=== PATIENT | male | born 1950 | race Caucasian/White ===

== ENCOUNTER → 2018-02-28 | Outpatient (CLI) | payer BC | END | disposition home or self-care (01) | LOC: WOUND 12:44 | PROVIDERS: ATTEND Family Medicine | DX: E10.622 Type 1 diabetes mellitus with other skin ulcer (principal); L97.212 Non-pressure chronic ulcer of right calf with fat layer exposed; E10.21 Type 1 diabetes mellitus with diabetic nephropathy; I10 Essential (primary) hypertension; E03.9 Hypothyroidism, unspecified; E66.01 Morbid (severe) obesity due to excess calories; Z68.37 Body mass index [BMI] 37.0-37.9, adult | CPT/HCPCS: 11043; 29581; 99214 ==

== ENCOUNTER → 2018-03-07 | Outpatient (CLI) | payer BC | END | disposition home or self-care (01) | LOC: WOUND 08:59 | PROVIDERS: ATTEND Internal Medicine Cardiovascular Disease | DX: E11.622 Type 2 diabetes mellitus with other skin ulcer (principal); L97.212 Non-pressure chronic ulcer of right calf with fat layer exposed; E11.21 Type 2 diabetes mellitus with diabetic nephropathy; E11.40 Type 2 diabetes mellitus with diabetic neuropathy, unspecified; I10 Essential (primary) hypertension; E03.9 Hypothyroidism, unspecified; E78.5 Hyperlipidemia, unspecified; E66.01 Morbid (severe) obesity due to excess calories; Z68.37 Body mass index [BMI] 37.0-37.9, adult | CPT/HCPCS: 29581 ==

== ENCOUNTER → 2018-03-14 | Outpatient (CLI) | payer BC | END | disposition home or self-care (01) | LOC: WOUND 09:48 | PROVIDERS: ATTEND Family Medicine | DX: E11.622 Type 2 diabetes mellitus with other skin ulcer (principal); L97.212 Non-pressure chronic ulcer of right calf with fat layer exposed; E11.21 Type 2 diabetes mellitus with diabetic nephropathy; I10 Essential (primary) hypertension; E03.9 Hypothyroidism, unspecified; E66.01 Morbid (severe) obesity due to excess calories; Z68.37 Body mass index [BMI] 37.0-37.9, adult | CPT/HCPCS: 97597 ==

== ENCOUNTER → 2018-03-21 | Outpatient (CLI) | payer BC | END | disposition home or self-care (01) | LOC: WOUND 09:00 | PROVIDERS: ATTEND Family Medicine | DX: E11.622 Type 2 diabetes mellitus with other skin ulcer (principal); L97.212 Non-pressure chronic ulcer of right calf with fat layer exposed; E11.40 Type 2 diabetes mellitus with diabetic neuropathy, unspecified; I10 Essential (primary) hypertension; E78.5 Hyperlipidemia, unspecified; E03.9 Hypothyroidism, unspecified; E66.01 Morbid (severe) obesity due to excess calories; Z68.37 Body mass index [BMI] 37.0-37.9, adult | CPT/HCPCS: 11042 ==

== ENCOUNTER → 2018-03-28 | Outpatient (CLI) | payer BC | END | disposition home or self-care (01) | LOC: WOUND 09:00 | PROVIDERS: ATTEND Family Medicine | DX: E11.622 Type 2 diabetes mellitus with other skin ulcer (principal); L97.212 Non-pressure chronic ulcer of right calf with fat layer exposed; E11.21 Type 2 diabetes mellitus with diabetic nephropathy; E11.40 Type 2 diabetes mellitus with diabetic neuropathy, unspecified; I10 Essential (primary) hypertension; E03.9 Hypothyroidism, unspecified; E66.01 Morbid (severe) obesity due to excess calories; Z68.37 Body mass index [BMI] 37.0-37.9, adult | CPT/HCPCS: 11042 ==

== ENCOUNTER → 2018-04-04 | Outpatient (CLI) | payer BC | END | disposition home or self-care (01) | LOC: WOUND 09:14 | PROVIDERS: ATTEND Family Medicine | DX: E11.622 Type 2 diabetes mellitus with other skin ulcer (principal); L97.212 Non-pressure chronic ulcer of right calf with fat layer exposed; E11.21 Type 2 diabetes mellitus with diabetic nephropathy; E11.40 Type 2 diabetes mellitus with diabetic neuropathy, unspecified; I10 Essential (primary) hypertension; E03.9 Hypothyroidism, unspecified; E66.01 Morbid (severe) obesity due to excess calories; E78.5 Hyperlipidemia, unspecified; I87.2 Venous insufficiency (chronic) (peripheral); Z68.37 Body mass index [BMI] 37.0-37.9, adult | CPT/HCPCS: 11042 ==

== ENCOUNTER → 2018-04-14 | Outpatient (CLI) | payer BC | END | disposition home or self-care (01) | LOC: WOUND 09:06 | PROVIDERS: ATTEND Internal Medicine | DX: E11.622 Type 2 diabetes mellitus with other skin ulcer (principal); L97.212 Non-pressure chronic ulcer of right calf with fat layer exposed; E11.21 Type 2 diabetes mellitus with diabetic nephropathy; E11.40 Type 2 diabetes mellitus with diabetic neuropathy, unspecified; I10 Essential (primary) hypertension; E03.9 Hypothyroidism, unspecified; E78.5 Hyperlipidemia, unspecified; E66.01 Morbid (severe) obesity due to excess calories; Z68.37 Body mass index [BMI] 37.0-37.9, adult | CPT/HCPCS: 97597 ==

== ENCOUNTER → 2018-04-21 | Outpatient (CLI) | payer BC | END | disposition home or self-care (01) | LOC: WOUND 09:00 | PROVIDERS: ATTEND Internal Medicine | DX: E11.622 Type 2 diabetes mellitus with other skin ulcer (principal); L97.212 Non-pressure chronic ulcer of right calf with fat layer exposed; E11.21 Type 2 diabetes mellitus with diabetic nephropathy; E11.40 Type 2 diabetes mellitus with diabetic neuropathy, unspecified; I10 Essential (primary) hypertension; E03.9 Hypothyroidism, unspecified; E78.5 Hyperlipidemia, unspecified; E66.01 Morbid (severe) obesity due to excess calories; I87.2 Venous insufficiency (chronic) (peripheral); Z68.37 Body mass index [BMI] 37.0-37.9, adult | CPT/HCPCS: 97597 ==

== ENCOUNTER → 2018-05-02 | Outpatient (CLI) | payer BC | END | disposition home or self-care (01) | LOC: WOUND 09:00 | PROVIDERS: ATTEND Internal Medicine | DX: E11.622 Type 2 diabetes mellitus with other skin ulcer (principal); L97.212 Non-pressure chronic ulcer of right calf with fat layer exposed; E11.42 Type 2 diabetes mellitus with diabetic polyneuropathy; E11.21 Type 2 diabetes mellitus with diabetic nephropathy; I10 Essential (primary) hypertension; E78.5 Hyperlipidemia, unspecified; E66.01 Morbid (severe) obesity due to excess calories; E03.9 Hypothyroidism, unspecified; Z68.37 Body mass index [BMI] 37.0-37.9, adult | CPT/HCPCS: 97597 ==

== ENCOUNTER → 2018-05-13 | Outpatient (CLI) | payer BC | END | disposition home or self-care (01) | LOC: WOUND 11:16 | PROVIDERS: ATTEND Nurse Practitioner Family | DX: E11.622 Type 2 diabetes mellitus with other skin ulcer (principal); L97.212 Non-pressure chronic ulcer of right calf with fat layer exposed; E11.42 Type 2 diabetes mellitus with diabetic polyneuropathy; E11.21 Type 2 diabetes mellitus with diabetic nephropathy; I10 Essential (primary) hypertension; E78.5 Hyperlipidemia, unspecified; E66.01 Morbid (severe) obesity due to excess calories; E03.9 Hypothyroidism, unspecified; Z68.37 Body mass index [BMI] 37.0-37.9, adult | CPT/HCPCS: 11042 ==

== ENCOUNTER → 2018-05-23 | Outpatient (CLI) | payer BC | END | disposition home or self-care (01) | LOC: WOUND 13:06 | PROVIDERS: ATTEND Family Medicine | DX: E11.622 Type 2 diabetes mellitus with other skin ulcer (principal); L97.212 Non-pressure chronic ulcer of right calf with fat layer exposed; E11.21 Type 2 diabetes mellitus with diabetic nephropathy; E11.42 Type 2 diabetes mellitus with diabetic polyneuropathy; E11.51 Type 2 diabetes mellitus with diabetic peripheral angiopathy without gangrene; I10 Essential (primary) hypertension; E03.9 Hypothyroidism, unspecified; E78.5 Hyperlipidemia, unspecified; E66.01 Morbid (severe) obesity due to excess calories; Z68.37 Body mass index [BMI] 37.0-37.9, adult | CPT/HCPCS: 11042 ==

== ENCOUNTER 2018-06-02 09:26 | Outpatient (CLI) | payer BC | END 2018-06-09 12:45 | disposition home or self-care (01) | LOC: WOUND 09:26 | PROVIDERS: ATTEND Internal Medicine | DX: E11.622 Type 2 diabetes mellitus with other skin ulcer (principal); L97.212 Non-pressure chronic ulcer of right calf with fat layer exposed; E11.21 Type 2 diabetes mellitus with diabetic nephropathy; E11.42 Type 2 diabetes mellitus with diabetic polyneuropathy; E11.51 Type 2 diabetes mellitus with diabetic peripheral angiopathy without gangrene; I10 Essential (primary) hypertension; E03.9 Hypothyroidism, unspecified; E78.5 Hyperlipidemia, unspecified; E66.01 Morbid (severe) obesity due to excess calories; Z68.37 Body mass index [BMI] 37.0-37.9, adult | CPT/HCPCS: 97597 ==

== ENCOUNTER → 2018-06-09 | Outpatient (CLI) | payer BC | END | disposition home or self-care (01) | LOC: WOUND 08:41 | PROVIDERS: ATTEND Internal Medicine | DX: E11.622 Type 2 diabetes mellitus with other skin ulcer (principal); L97.212 Non-pressure chronic ulcer of right calf with fat layer exposed; E11.51 Type 2 diabetes mellitus with diabetic peripheral angiopathy without gangrene; E11.42 Type 2 diabetes mellitus with diabetic polyneuropathy; E11.21 Type 2 diabetes mellitus with diabetic nephropathy; I10 Essential (primary) hypertension; E03.9 Hypothyroidism, unspecified; E78.5 Hyperlipidemia, unspecified; E66.01 Morbid (severe) obesity due to excess calories; Z68.37 Body mass index [BMI] 37.0-37.9, adult | CPT/HCPCS: 97597 ==

== ENCOUNTER → 2018-06-16 | Outpatient (CLI) | payer BC | END | disposition home or self-care (01) | LOC: WOUND 09:31 | PROVIDERS: ATTEND Internal Medicine | DX: E11.621 Type 2 diabetes mellitus with foot ulcer (principal); L97.212 Non-pressure chronic ulcer of right calf with fat layer exposed; E11.42 Type 2 diabetes mellitus with diabetic polyneuropathy; E11.21 Type 2 diabetes mellitus with diabetic nephropathy; E11.51 Type 2 diabetes mellitus with diabetic peripheral angiopathy without gangrene; I10 Essential (primary) hypertension; E03.9 Hypothyroidism, unspecified; E78.5 Hyperlipidemia, unspecified; E66.01 Morbid (severe) obesity due to excess calories; Z68.37 Body mass index [BMI] 37.0-37.9, adult | CPT/HCPCS: 97597 ==

== ENCOUNTER → 2018-06-23 | Outpatient (CLI) | payer BC | END | disposition home or self-care (01) | LOC: WOUND 09:52 | PROVIDERS: ATTEND Internal Medicine | DX: E11.622 Type 2 diabetes mellitus with other skin ulcer (principal); L97.212 Non-pressure chronic ulcer of right calf with fat layer exposed; E11.42 Type 2 diabetes mellitus with diabetic polyneuropathy; E11.21 Type 2 diabetes mellitus with diabetic nephropathy; E11.51 Type 2 diabetes mellitus with diabetic peripheral angiopathy without gangrene; I10 Essential (primary) hypertension; E03.9 Hypothyroidism, unspecified; E78.5 Hyperlipidemia, unspecified; E66.01 Morbid (severe) obesity due to excess calories; Z68.37 Body mass index [BMI] 37.0-37.9, adult | CPT/HCPCS: 99215 ==

== ENCOUNTER → 2018-07-07 | Outpatient (CLI) | payer BC | END | disposition home or self-care (01) | LOC: WOUND 09:49 | PROVIDERS: ATTEND Internal Medicine | DX: E11.622 Type 2 diabetes mellitus with other skin ulcer (principal); L97.212 Non-pressure chronic ulcer of right calf with fat layer exposed; E11.42 Type 2 diabetes mellitus with diabetic polyneuropathy; E11.21 Type 2 diabetes mellitus with diabetic nephropathy; E11.51 Type 2 diabetes mellitus with diabetic peripheral angiopathy without gangrene; I10 Essential (primary) hypertension; E03.9 Hypothyroidism, unspecified; E78.5 Hyperlipidemia, unspecified; E66.01 Morbid (severe) obesity due to excess calories; Z68.37 Body mass index [BMI] 37.0-37.9, adult | CPT/HCPCS: 99214 ==

== ENCOUNTER 2018-11-11 11:59 | Day surgery (SDC) | payer BC ==
[2018-11-10 10:19] VITALS: BP 131/71
[2018-11-10 10:58] LABS: ALANINE AMINOTRANSFERASE 28 U/L (12-78); ALBUMIN 3.4 g/dL (3.4-5.0); ANION GAP 5 mmol/L (5-15); CALCIUM 8.7 mg/dL (8.5-10.1); CHLORIDE 109 mmol/L (98-107); CREATININE 0.79 mg/dL (0.7-1.3)
[2018-11-10 11:00] LABS: ALKALINE PHOSPHATASE 90 U/L (45-117); BILIRUBIN,TOTAL 0.9 mg/dL (0.2-1.0)
[~2018-11-11] VITALS: Ht 175.3 cm; Wt 118.1 kg
[~2018-11-11 11:59] MED LIST: DULA0.75 INJ; INSU100I43 SC; LEVO75TA PO; LISI-170 PO; METF500T17 PO
[2018-11-11] MEDS ORDERED: LACTATED RINGERS 1,000 ML IV SCH (12:32)
[2018-11-11] MEDS ORDERED: IBUP-1222 PO (12:34)
[2018-11-11] MEDS ORDERED: FENTANYL PF 100 MCG/2ML ONE ×3 (13:26→16:29)
[2018-11-11] MEDS ORDERED: MIDAZOLAM 1 MG/ML, 2ML ONE (13:26)
[2018-11-11] MEDS ORDERED: FENTANYL PF 100 MCG/2ML IV PRN (14:00)
[2018-11-11] MEDS ORDERED: MEPERIDINE/PF 25MG/0.5ML IVPush PRN (14:00)
[2018-11-11] MEDS ORDERED: LORazepam 2 MG/ML, 1ML IVPush PRN (14:00)
[2018-11-11] MEDS ORDERED: hydrALAzine 20 MG/ML, 1ML IV PRN (14:00)
[2018-11-11] MEDS ORDERED: LABETALOL 5MG/ML, 20ML IV PRN (14:00)
[2018-11-11] MEDS ORDERED: ACETAMINOPHEN 325 MG TABLET PO PRN (14:00)
[2018-11-11] MEDS ORDERED: METOCLOPRAMIDE 5 MG/ML, 2ML IV PRN (14:00)
[2018-11-11] MEDS ORDERED: HYDROmorphone 2 MG/ML, 1ML IVPush PRN (14:00)
[2018-11-11] MEDS ORDERED: OXYcodone 5 MG/5 ML ORAL.SOL UDC PO PRN (14:00)
[2018-11-11] MEDS ORDERED: CEFAZOLIN 1,000 MG ONE (14:08)
[2018-11-11] MEDS ORDERED: EPHEDRINE 50 MG/ML, 1ML ONE (14:08)
[2018-11-11] MEDS ORDERED: PROPOFOL 10 MG/ML, 20ML ONE (14:08)
[2018-11-11] MEDS ORDERED: ONDANSETRON 2MG/ML, 2ML ONE (14:08)
[2018-11-11] MEDS ORDERED: BUPIVACAINE/EPI 0.5% 1:200K ONE ×2 (14:25→14:55)
[2018-11-11] MEDS ORDERED: ACETAMINOPHEN 650 MG/20.3 ML UDC ONE (16:29)
[2018-11-11] MEDS ORDERED: OXYcodone 5 MG/5 ML ORAL.SOL UDC ONE (16:30)
== END 2018-11-11 18:10 | disposition home or self-care (01) ==
LOC: OUT 11:59
PROVIDERS: ATTEND Surgery
DX: I83.018 Varicose veins of right lower extremity with ulcer other part of lower leg (principal); L97.819 Non-pressure chronic ulcer of other part of right lower leg with unspecified severity; I10 Essential (primary) hypertension; E11.9 Type 2 diabetes mellitus without complications; E78.5 Hyperlipidemia, unspecified; Z79.4 Long term (current) use of insulin
CPT/HCPCS: 36415; 37766; 71046; 80053; 82962; 93005; C1888; J0690; J2250; J2405; J2704; J3010; J7120